=== PATIENT | male | born 1990 | race Caucasian/White ===

== ENCOUNTER 2017-10-25 09:43 | Emergency (ER) | payer OTHER ==
--- OUTSIDE RECORDS SUMMARY | 2017-10-25 10:14 | XMS REPORT ---
:1990 Author Organization eClinicalWorks Care Team Providers Name Role Phone KilgoreChavez Provider Role Unavailable Allergies No Known Allergies Problems Problem Type Condition Code Onset Dates Condition Status Assessment Obstructive sleep apnea (adult) G47.33 Active (pediatric) Assessment Primary insomnia F51.01 Active Assessment Low back pain M54.5 Active Problem Malaise and fatigue R53.81 Active Problem Obstructive sleep apnea (adult) G47.33 Active (pediatric) Problem Other chronic pain G89.29 Active Problem 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 machines and devices Problem Adult BMI 40.0-44.9 kg/sq m Z68.41 Active Problem HTN (hypertension), benign I10 Active Problem Primary insomnia F51.01 Active Assessment Other chronic pain G89.29 Active Assessment 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
--- OUTSIDE RECORDS SUMMARY | 2017-10-25 10:14 | XMS REPORT ---
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 and devices Problem Obstructive sleep apnea (adult) G47.33 Active (pediatric) Problem HTN (hypertension), benign I10 Active Assessment Other chronic pain G89.29 Active Assessment HTN (hypertension), benign I10 Active Assessment Obstructive sleep apnea (adult) G47.33 Active (pediatric) Assessment 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
--- OUTSIDE RECORDS SUMMARY | 2017-10-25 10:14 | XMS REPORT ---
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 machines and devices Problem Adult BMI 40.0-44.9 kg/sq m Z68.41 Active Problem HTN (hypertension), benign I10 Active Problem Primary insomnia F51.01 Active Assessment Low back pain M54.5 Active Assessment 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 machines and devices Assessment HTN (hypertension), benign I10 Active Assessment Other chronic pain G89.29 Active Assessment Primary insomnia F51.01 Active Medications Medication Code Code Instructions Start End Status Dosage System Date Date Duexis [facility] 69392491940 800-26.6 MG April 25, June 24, Active 1 tablet Orally Three 2018 2018 times a day PRN Tizanidine HCl [facility] 15130247182 4 MG Orally once May 23, Active 1 tablet a day 2018 as needed Ambien [facility] 37172757874 5 MG Orally Once Active 1 tablet a day at bedtime Results No Known Results Summary Purpose eClinicalWorks Submission
--- OUTSIDE RECORDS SUMMARY | 2017-10-25 10:14 | XMS REPORT ---
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 machines and devices Problem Malaise and fatigue R53.81 Active Problem Adult BMI 40.0-44.9 kg/sq m Z68.41 Active Assessment Acute upper back pain M54.9 Active Problem Obstructive sleep apnea (adult) G47.33 Active (pediatric) Problem HTN (hypertension), benign I10 Active Medications Medication Code System Code Instructions Start End Date Status Dosage Date Ambien [facility] 21819599242 5 MG Orally Once April 25, Active 1 tablet at a day 2018 bedtime Duexis [facility] 74662613635 800-26.6 MG April 25June 24, Active 1 tablet Orally Three 2018 2018 times a day PRN Results No Known Results Summary Purpose eClinicalWorks Submission
--- NOTE | 2017-10-25 11:09 | RAD REPORT ---
EXAM DESCRIPTION: RAD - Foot Left 3 View - 10/25/2017 10:33 am CLINICAL HISTORY: PAIN COMPARISON: No comparisons FINDINGS: Mild soft tissue swelling is seen along the plantar aspect of the forefoot. No fracture or dislocation seen. No aggressive marrow pattern. Small posterior calcaneal spur.
--- NOTE | 2017-10-25 11:18 | ER ---
Nurse's Notes [facility] Name: Timmy Clark Age: 27 yrs Sex: Male : 1990 Arrival Date: 10/25/2017 Time: 09:46 Bed 12 Private MD: Chavez Kilgore Diagnosis: Pain in left foot Presentation: 10/25 09:58 Presenting complaint: Patient states: noticed a lump under his left foot that was very iw painful this morning, pt does not know how long the lump has been there. Transition of care: patient was not received from another setting of care. Onset of symptoms was October 25, 2017. Risk Assessment: Do you want to hurt yourself or someone else? Patient reports no desire to harm self or others. Initial Sepsis Screen: Does the patient meet any 2 criteria? No. Patient's initial sepsis screen is negative. Does the patient have a suspected source of infection? No. Patient's initial sepsis screen is negative. Care prior to arrival: None. 09:58 Method Of Arrival: Ambulatory iw 09:58 Acuity: RM 4 iw Historical: - Allergies: 10:01 NKA; iw - Home Meds: 10:01 None [Active]; iw - PMHx: 10:01 Hypertension; iw - PSHx: 10:01 Skin Graft; shrapnel removed from left leg; iw - Immunization history:: Adult Immunizations not up to date. - Social history:: Smoking status: Patient/guardian denies using tobacco. - Ebola Screening: : Patient negative for fever greater than or equal to 101.5 degrees Fahrenheit, and additional compatible Ebola Virus Disease symptoms Patient denies exposure to infectious person Patient denies travel to an Ebola-affected area in the 21 days before illness onset No symptoms or risks identified at this time. Screenin:30 Abuse screen: Denies threats or abuse. Denies injuries from another. Nutritional iw screening: No deficits noted. Tuberculosis screening: No symptoms or risk factors identified. Fall Risk None identified. Assessment: 10:49 General: Appears in no apparent distress. Behavior is calm, cooperative. Pain: iw Complains of pain in ball of left foot Pain currently is 4 out of 10 on a pain scale. Neuro: Level of Consciousness is awake, alert, obeys commands, Oriented to person, place, time, situation, Moves all extremities. Full function. Cardiovascular: Capillary refill < 3 seconds in bilateral fingers Patient's skin is warm and dry. Respiratory: Respiratory effort is even, unlabored, Respiratory pattern is regular, symmetrical. Derm: Skin is intact, is healthy with good turgor. Musculoskeletal: Range of motion: intact in all extremities, Reports pain in left foot. Vital Signs: 10:01 BP 144 / 90; Pulse 79; Resp 16; Temp 98.3; Pulse Ox 98% on R/A; Weight 129.27 kg; iw Height 5 ft. 7 in. (170.18 cm); Pain 4/10; 10:01 Body Mass Index 44.64 (129.27 kg, 170.18 cm) iw ED Course: 09:46 Patient arrived in ED. mr 09:47 Chavez Kilgore DO is Private Physician. mr 09:58 Lalitha Zamudio, RN is Primary Nurse. iw 09:59 [facility] jr8 09:59 Brent Ramos MD is Attending Physician. jr8 09:59 Triage completed. iw 10:01 Arm band placed on. iw 10:32 X-ray completed. Portable x-ray completed in exam room. jr1 10:33 XRAY Foot LEFT 3 View In Process Unspecified. EDMS 11:17 Alton Hernández DPM is Referral Physician. jr8 11:30 Patient has correct armband on for positive identification. iw 11:30 No provider procedures requiring assistance completed. Patient did not have IV access iw during this emergency room visit. Administered Medications: No medications were administered Outcome: 11:17 Discharge ordered by . jr8 11:30 Discharged to home ambulatory. iw 11:30 Condition: good 11:30 Discharge instructions given to patient, Instructed on discharge instructions, follow up and referral plans. medication usage, Demonstrated understanding of instructions, follow-up care, medications, Prescriptions given X 1. 11:30 Patient left the ED. iw Signatures: Dispatcher [employer] EDNM Mitali Gordon mr KeithInocencia guzman jr1 Lalitha Zamudio, RN RN iw Augustin Bruce PA PA jr8
--- NOTE | 2017-10-25 11:18 | EDPHYS ---
Physician Documentation [facility] Name: Timmy Clark Age: 27 yrs Sex: Male : 1990 Arrival Date: 10/25/2017 Time: 09:46 Bed 12 Private MD: [facility] ED Physician Brent Ramos HPI: 10/25 10:10 This 27 yrs old Male presents to ER via Ambulatory with complaints of Foot jr8 Pain. 10:10 The patient presents with pain, tenderness. The complaints affect the ball of left jr8 foot. Onset: The symptoms/episode began/occurred acutely, today. Modifying factors: The symptoms are alleviated by nothing. the symptoms are aggravated by weight bearing. Associated signs and symptoms: The patient has no apparent associated signs or symptoms. Severity of symptoms: At their worst the symptoms were moderate, in the emergency department the symptoms are unchanged. The patient has not experienced similar symptoms in the past. The patient has not recently seen a physician. Denies trauma to foot. Stated that he has pain at ball of foot. Tender to palpation and walking . Historical: - Allergies: 10:01 NKA; iw - Home Meds: 10:01 None [Active]; iw - PMHx: 10:01 Hypertension; iw - PSHx: 10:01 Skin Graft; shrapnel removed from left leg; iw - Immunization history:: Adult Immunizations not up to date. - Social history:: Smoking status: Patient/guardian denies using tobacco. - Ebola Screening: : Patient negative for fever greater than or equal to 101.5 degrees Fahrenheit, and additional compatible Ebola Virus Disease symptoms Patient denies exposure to infectious person Patient denies travel to an Ebola-affected area in the 21 days before illness onset No symptoms or risks identified at this time. ROS: 10:10 Eyes: Negative for injury, pain, redness, and discharge, ENT: Negative for injury, jr8 pain, and discharge, Neck: Negative for injury, pain, and swelling, Cardiovascular: Negative for chest pain, palpitations, and edema, Respiratory: Negative for shortness of breath, cough, wheezing, and pleuritic chest pain, Abdomen/GI: Negative for abdominal pain, nausea, vomiting, diarrhea, and constipation, Back: Negative for injury and pain, Skin: Negative for injury, rash, and discoloration, Neuro: Negative for headache, weakness, numbness, tingling, and seizure. 10:10 MS/extremity: Positive for pain, tenderness, of the ball of left foot. Exam: 10:10 Constitutional: This is a well developed, well nourished patient who is awake, alert, jr8 and in no acute distress. Cardiovascular: Regular rate and rhythm with a normal S1 and S2. No gallops, murmurs, or rubs. Normal PMI, no JVD. No pulse deficits. Respiratory: Lungs have equal breath sounds bilaterally, clear to auscultation and percussion. No rales, rhonchi or wheezes noted. No increased work of breathing, no retractions or nasal flaring. Skin: Warm, dry with normal turgor. Normal color with no rashes, no lesions, and no evidence of cellulitis. Neuro: Awake and alert, GCS 15, oriented to person, place, time, and situation. Cranial nerves II-XII grossly intact. Motor strength 5/5 in all extremities. Sensory grossly intact. Cerebellar exam normal. Normal gait. 10:10 Musculoskeletal/extremity: Extremities: grossly normal except: noted in the left foot: Pain and point tenderness to ball of left foot between the 2nd and 3rd digits. No external signs of infection or trauma. No FB identified . Vital Signs: 10:01 BP 144 / 90; Pulse 79; Resp 16; Temp 98.3; Pulse Ox 98% on R/A; Weight 129.27 kg; iw Height 5 ft. 7 in. (170.18 cm); Pain 4/10; 10:01 Body Mass Index 44.64 (129.27 kg, 170.18 cm) iw MDM: 10:07 Patient medically screened. jr8 11:16 Data reviewed: vital signs, nurses notes, radiologic studies, plain films, and as a jr8 result, I will discharge patient. Data interpreted: Pulse oximetry: on room air is 98 %. Interpretation: normal. 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 10/25 10:07 Order name: XRAY Foot LEFT 3 View; Complete Time: 11:16 jr8 Administered Medications: No medications were administered Disposition: 12:38 Co-signature as Attending Physician, Brent Ramos MD I agree with the assessment and kdr plan of care. Disposition: 10/25/17 11:17 Discharged to Home. Impression: Pain in left foot. - Condition is Stable. - Discharge Instructions: Pain Without a Known Cause. - Prescriptions for Ibuprofen 800 mg Oral Tablet - take 1 tablet by ORAL route every 8 hours As needed take with food; 30 tablet. - Work release form, Medication Reconciliation Form, Thank You Letter, Antibiotic Education, Prescription Opioid Use form. - Follow up: Alton Hernández DPM; When: 2 - 3 days; Reason: Recheck today's complaints, Continuance of care, Re-evaluation by your physician. - Problem is new. - Symptoms have improved. Signatures: Dispatcher [employer] EDMS Brent Ramos MD MD kdr Lalitha Zamudio RN RN iw Augustin Bruce PA PA jr8 Corrections: (The following items were deleted from the chart) 11:30 11:17 10/25/2017 11:17 Discharged to Home. Impression: Pain in left foot. Condition is iw Stable. Forms are Medication Reconciliation Form, Thank You Letter, Antibiotic Education, Prescription Opioid Use. Follow up: Alton Hernández; When: 2 - 3 days; Reason: Recheck today's complaints, Continuance of care, Re-evaluation by your physician. Problem is new. Symptoms have improved. jr8
== END 2017-10-25 11:30 | disposition home or self-care (01) ==
LOC: ER 09:43
DX: M79.672 Pain in left foot (principal); I10 Essential (primary) hypertension
CPT/HCPCS: 99283

== ENCOUNTER 2022-10-02 01:19 | Inpatient (IN) | payer OTHER ==
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
[2022-10-02] MEDS ORDERED: ONDANSETRON 4 MG/2 ML VIAL IV PRN (01:36)
[2022-10-02] MEDS ORDERED: ALPRAZOLAM 0.25 MG TABLET PO PRN (01:36)
[2022-10-02] MEDS ORDERED: KETOROLAC 30 MG/ML INJ IV PRN (01:36)
[2022-10-02 01:47] VITALS: BMI 40.1
[2022-10-02] MEDS ORDERED: NA CHLORIDE 0.9% 1,000 ML IV SCH (02:00)
--- NOTE | 2022-10-02 02:10 | P.HP ---
Certification for Inpatient Patient admitted to: Inpatient With expected LOS: <2 Midnights Patient will require the following post-hospital care: None Practitioner: I am a practitioner with admitting privileges, knowledge of patient current condition, hospital course, and medical plan of care. Services: Services provided to patient in accordance with Admission requirements found in Title 42 Section 412.3 of the Code of Federal Regulations Patient History Date of Service: 10/02/22 Reason for admission: Abdominal pain History of Present Illness: 32-year-old male with a past medical history of hypertension, hyperlipidemia, obesity, presents to the [facility] emergency room with abdominal pain. He reports epigastric pain that is radiates to the back was 10 out of 10 started yesterday. He reports going to the emergency room after several hours. He denies nausea vomiting diarrhea fever, recent infection. He reports not taking medication for high blood pressure, elevated cholesterol, he reports taken weight loss medication Wegovy for 4 months. He reported occasional reflux other than that no prior symptoms. He reports symptoms improved with Toradol and freestanding ER. 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 - Family History Mother -: Heart disease, Lung disease, Other (see notes) Notes: Asthma Father -: Heart disease - Social History Smoking Status: Never smoker Alcohol use: Yes CD- Drugs: No Caffeine use: Yes Place of Residence: Home Review of Systems 10-point ROS is otherwise unremarkable Physical Examination - Vital Signs Temperature: 97.9 F Blood Pressure: 131/62 Pulse: 57 Respirations: 16 Pulse Ox (%): 98 - Physical Exam General: Alert, In no apparent distress, Oriented x3, Obese HEENT: Atraumatic, Normocephalic, PERRLA Neck: Supple, 2+ carotid pulse no bruit, JVD not distended Respiratory: Clear to auscultation bilaterally, Normal air movement Cardiovascular: No edema, Normal pulses, Regular rate/rhythm, Normal S1 S2 Gastrointestinal: Normal bowel sounds, Soft and benign, Other (Epigastric tenderness) Musculoskeletal: No clubbing, No swelling Integumentary: No rashes, No breakdown Neurological: Normal speech, Normal strength at 5/5 x4 extr, Sensation intact, Cranial nerves 3-12 intact Assessment and Plan - Plan Assessment plan abdominal pain Transaminitis Elevated GGT gallstones without obstruction DVT prophylaxis Assessment plan abdominal pain Transaminitis Elevated GGT GI consult, hepatitis panel, start PPI As needed analgesics, as needed antiemetics Lipid panel, in the a.m. A1c in the a.m., lipase in the a.m. CT shows gallstones without obstruction per report from the ER physician verbal report DVT prophylaxis Full code Diet n.p.o. Discharge Plan: Home Plan to discharge in: 48 Hours - Advance Directives Does patient have a Living Will: No Does patient have a Durable POA for Healthcare: No - Code Status/Comfort Care Code Status: Full Code Physician Review: Patient Assessed, Agree with Above Assessment and Plan Critical Care: No Time Spent Managing Pts Care (In Minutes): 50
[2022-10-02] MEDS ORDERED: SODIUM CHLORIDE 0.9% 10ML INJ IV PRN (02:16)
[2022-10-02 03:29] LABS: Absolute Lymphocytes (CBC) 1.8 K/uL (0.7-4.9); Hematocrit 43.7 % (39.6-49.0); Lymphocytes % 27.7 % (15.3-44.8); MCV 94.8 fL (80-100); MPV 8.4 fL (7.6-11.3); Platelets 262 thou/uL (152-406); RBC Red Blood Cell Count 4.61 M/uL (4.33-5.43)
[2022-10-02 04:05] LABS: Albumin 3.5 g/dL (3.4-5.0); Magnesium 1.8 mg/dL (1.6-2.4); Potassium 3.5 mEq/L (3.5-5.1); Protein, Total 7.2 g/dL (6.4-8.2)
[2022-10-02] MEDS ORDERED: KCL 20 MEQ/100 mL IVPB 20 MEQ/100 ML BAG IV SCH (06:00)
[2022-10-02 06:10] LABS: Phosphorus 3.9 mg/dL (2.5-4.9)
[2022-10-02 06:47] LABS: Hepatitis B Core IgM Nonreactive (Nonreactive); Hepatitis B surface AG Interp. Nonreactive (Nonreactive); Hepatitis C Virus Ab Nonreactive (Nonreactive)
[2022-10-02] MEDS ORDERED: MAGNESIUM SULFATE 1 gm IVPB 1 GM/100 ML BAG IV ONE (08:00)
[2022-10-02] MEDS: NA CHLORIDE 0.9% 1,000 ML IV SCH ×3 (08:22→19:47)
[2022-10-02] MEDS: MORPHINE 4 MG/ML SYR IV PRN ×2 (08:27→12:38)
[2022-10-02] MEDS: PANTOPRAZOLE 40 MG INJ IVP SCH ×2 (08:28→19:46)
[2022-10-02 09:01] LABS: Protime INR 1.27
--- NOTE | 2022-10-02 09:42 | RAD REPORT ---
EXAM DESCRIPTION: US - Scrotum Testicles - 10/02/2022 5:22 am CLINICAL HISTORY: testicular pain COMPARISON: No comparisons TECHNIQUE: Sonographic grayscale and color flow images of the scrotum were obtained. FINDINGS: The right testicle measures 3.7 x 2.5 x 3.6 cm. No intratesticular masses or evidence of t esticular torsion. The left testicle measures 3.7 x 2.4 x 3.1 cm. No intratesticular masses or evidence of testicular to rsion. Normal vascularity to both testes. Both epididymides are normal in size and appearance. No varicocele. Trace left hydrocele. No pathologic fluid collections. IMPRESSION: Trace left hydrocele. Otherwise unremarkable scrotal ultrasound.
--- NOTE | 2022-10-02 12:12 | EKG ---
Test Date: 2022-10-02 Test Time: 09:23:07 Skirt Trimmer: CALLUM MEASUREMENT RESULTS: Intervals: Rate: 58 NM: 152 QRSD: 110 QT: 446 QTc: 437 [place]: P: 38 NM: 152 QRS: 74 T: 54 INTERPRETIVE STATEMENTS: Sinus bradycardia Nonspecific T wave abnormality Abnormal ECG Compared to ECG 11/12/2007 09:13:53 T-wave abnormality now present Sinus rhythm no longer present Sinus arrhythmia no longer present Electronically Signed On 10-02-22 12:11:43 CDT by Lonny Philip
[2022-10-02 13:09] LABS: Urine Bacteria None Seen /HPF (<20); Urine Bilirubin 1+ (Negative); Urine Blood Trace (Negative); Urine Clarity Clear (Clear); Urine Color Dark-Yellow (Yellow); Urine Glucose NEGATIVE (Negative); Urine Mucus 4+ /HPF (None Seen); Urine Protein 1+ (Negative); Urine Urobilinogen 1+ (Normal)
[2022-10-02 13:10] LABS: Specific Gravity > 1.030 (1.005-1.030)
[2022-10-02] MEDS: PHENAZOPYRIDINE 100MG TAB PO SCH ×2 (15:15→19:46)
--- NOTE | 2022-10-02 15:24 | P.PN ---
Date of Service: 10/02/22 Patient seen and examined. Patient is complaining of difficulty voiding, suprapubic pain. He stated his abdominal pain has resolved. No fever. CT abdomen pelvis done at [place] [facility] results reviewed. Gall stones without acute cholecystitis noted. Elevated AST/ALT/ALP Normal CPK. Normal coagulation profile. Poor urine output. Because of AST/ALT/ALP and abdominal is unclear. Could be related to passage of gallstone. Hepatitis profile is negative. Because of suprapubic pain also unclear. UA does not suggest UTI. Plan: Supportive measures Aggressive IV hydration Monitor urine output Repeat LFT GI consulted. Regular diet. N.p.o. after midnight.
[2022-10-03] MEDS: NA CHLORIDE 0.9% 1,000 ML IV SCH ×4 (03:16→22:10)
[2022-10-03 03:22] LABS: Absolute Lymphocytes (CBC) 1.8 K/uL (0.7-4.9); Hematocrit 39.3 % (39.6-49.0); Lymphocytes % 27.3 % (15.3-44.8); MCV 92.9 fL (80-100); MPV 8.4 fL (7.6-11.3); Platelets 230 thou/uL (152-406); RBC Red Blood Cell Count 4.23 M/uL (4.33-5.43)
[2022-10-03 03:49] LABS: Albumin 2.9 g/dL (3.4-5.0); Bilirubin Direct 0.3 mg/dL (0-0.2); Magnesium 1.9 mg/dL (1.6-2.4); Potassium 3.7 mEq/L (3.5-5.1); Protein, Total 6.1 g/dL (6.4-8.2)
--- NOTE | 2022-10-03 07:08 | P.PN ---
Date of Service: 10/03/22 Subjective: Abdominal pain resolved since yesterday morning no acute events overnight Decreased UOP, +dark urine - taylor testicular pain resolved afebrile ROS: 10 point ROS as noted above, otherwise negative Physical Exam: GEN: Alert, oriented, NAD HEENT: Normal conjunctiva, sclera anicteric CV: Regular rate and rhythm, no edema Pulm: Nonlabored respirations on room air, clear bilaterally ABD: Soft, mild epigastric tenderness, nondistended Neuro: Normal speech, normal affect Taylor in place, [place] urine vitals reviewed Problem List: Abdominal pain Transaminitis Elevated GGT Cholelithiasis without acute cholecystitis Testicular pain urinary retention Abdominal pain Transaminitis Elevated GGT Cholelithiasis without acute cholecystitis CT abdomen pelvis done at [place] [facility] results reviewed. Gall stones without acute cholecystitis noted. GI consulted MRCP noted contracted gallbladder otherwise unremarkable Cont aggressive IV fluids NPO for now, advance diet this afternoon and adjust IVF cont PPI abdominal pain improved, +afebrile PRN pain medication LFTs improving suspect passed stone / transient obstruction Normal CPK. repeat labs in am Testicular pain urinary retention scrotum u/s (10/02): Trace left hydrocele. Otherwise unremarkable UA does not suggest UTI. Dark urine noted, secondary to bilirubin Taylor placed 10/02 due to urinary retention unclear etiology of urinary retention, possibly from bilirubin, CT abd/pelvis and testicular U/S normal void trial in AM VTE: SCD Code: Full Dispo: Home, ~1 day
[2022-10-03] MEDS ORDERED: MAGNESIUM SULFATE 1 gm IVPB 1 GM/100 ML BAG IV ONE (08:00)
[2022-10-03] MEDS ORDERED: LORazepam 2 MG/ML VIAL IV ONE (08:00)
[2022-10-03] MEDS ORDERED: KCL 20 MEQ/100 mL IVPB 20 MEQ/100 ML BAG IV SCH (09:00)
[2022-10-03] MEDS: PHENAZOPYRIDINE 100MG TAB PO SCH ×3 (09:06→20:48)
[2022-10-03] MEDS: PANTOPRAZOLE 40 MG INJ IVP SCH ×2 (09:06→20:48)
--- NOTE | 2022-10-03 10:11 | RAD REPORT ---
EXAM DESCRIPTION: MRICholangiogram10/03/2022 8:56 am CLINICAL HISTORY: Abdominal pain/elevated liver function test enzymes COMPARISON: None TECHNIQUE: Magnetic resonance cholangiogram was performed.3D MIP reconstruction performed. Additiona l axial and coronal magnetic resonance imaging of abdomen obtained. FINDINGS: The gallbladder is contracted. It was not well imaged on this exam The biliary tree is normal caliber without a filling defect. Pancreatic duct is normal caliber IMPRESSION: Contracted gallbladder which is not well imaged on this exam Otherwise normal MRCP
[2022-10-03] MEDS ORDERED: POTASSIUM CL SA 10 MEQ TAB PO ONE (15:15)
[2022-10-04 03:41] LABS: Absolute Lymphocytes (CBC) 2.2 K/uL (0.7-4.9); Lymphocytes % 32.5 % (15.3-44.8); MCV 93.3 fL (80-100); MPV 8.9 fL (7.6-11.3); Platelets 247 thou/uL (152-406)
[2022-10-04 04:02] LABS: Bilirubin Total 0.6 mg/dL (0.2-1.0); Magnesium 1.9 mg/dL (1.6-2.4); Phosphorus 3.9 mg/dL (2.5-4.9); Potassium 3.8 mEq/L (3.5-5.1); Protein, Total 6.4 g/dL (6.4-8.2)
[2022-10-04] MEDS: NA CHLORIDE 0.9% 1,000 ML IV SCH (04:52)
[2022-10-04] MEDS: PHENAZOPYRIDINE 100MG TAB PO SCH (08:06)
[2022-10-04] MEDS: PANTOPRAZOLE 40 MG INJ IVP SCH (08:06)
[2022-10-04] MEDS ORDERED: DOCUSATE NA 100 MG CAP PO SCH (09:00)
[2022-10-04] MEDS ORDERED: POTASSIUM CL SA 10 MEQ TAB PO ONE (09:00)
[2022-10-04 09:13] VITALS: O2SAT 96
[2022-10-04 09:41] VITALS: BP 130/71; TEMP 97.5
--- NOTE | 2022-10-04 10:28 | P.PN ---
Subjective Date of Service: 10/03/22 Chief Complaint: MARIO pain, cholelithiasis Subjective: Improving (No abdominal pain now. Feels much better.) Physical Examination - Vital Signs Temperature: 97.5 F Blood Pressure: 130/71 Pulse: 57 Respirations: 16 Pulse Ox (%): 97 - Studies Laboratory Data (last 24 hrs) 10/04/22 10/04/22 02:03 02:03 WBC 6.70 Hgb 14.3 Hct 41.0 Plt Count 247 Sodium 138 Potassium 3.8 BUN 11 Creatinine 0.83 Glucose 95 Phosphorus 3.9 Magnesium 1.9 Total Bilirubin 0.6 AST 110 H ALT 695 H Alkaline Phosphatase 136 H Lipase 86 H Assessment And Plan - Current Problems (Diagnosis) (1) Biliary colic Current Visit: Yes Status: Acute (2) Cholelithiasis Current Visit: Yes Status: Acute (3) Abnormal liver enzymes Current Visit: Yes Status: Acute (4) Weight loss Current Visit: Yes Status: Acute (5) Obesity Current Visit: Yes Status: Acute (6) Difficulty urinating Current Visit: Yes Status: Acute (7) PTSD (post-traumatic stress disorder) Current Visit: Yes Status: Acute - Plan REC: 1) monitor labs (probably passed biliary stone) 2) advance diet slowly Physician Review: Patient Assessed, Agree with Above Assessment and Plan
--- NOTE | 2022-10-04 10:29 | P.PN ---
Subjective Date of Service: 10/04/22 Chief Complaint: MARIO pain, cholelithiasis Subjective: Improving (Liver numbers continue to decline.) Physical Examination - Vital Signs Temperature: 97.5 F Blood Pressure: 130/71 Pulse: 57 Respirations: 16 Pulse Ox (%): 97 - Studies Laboratory Data (last 24 hrs) 10/04/22 10/04/22 02:03 02:03 WBC 6.70 Hgb 14.3 Hct 41.0 Plt Count 247 Sodium 138 Potassium 3.8 BUN 11 Creatinine 0.83 Glucose 95 Phosphorus 3.9 Magnesium 1.9 Total Bilirubin 0.6 AST 110 H ALT 695 H Alkaline Phosphatase 136 H Lipase 86 H Assessment And Plan - Current Problems (Diagnosis) (1) Biliary colic Current Visit: No Status: Acute (2) Cholelithiasis Current Visit: No Status: Acute (3) Abnormal liver enzymes Current Visit: No Status: Acute (4) Weight loss Current Visit: No Status: Acute (5) Obesity Current Visit: No Status: Acute (6) Difficulty urinating Current Visit: No Status: Acute (7) PTSD (post-traumatic stress disorder) Current Visit: No Status: Acute - Plan REC: 1) monitor labs (probably passed biliary stone) 2) advance diet 3) GI clinic f/u Physician Review: Patient Assessed, Agree with Above Assessment and Plan
--- NOTE | 2022-10-04 14:18 | CON ---
Date of Consultation: 10/02/2022 Reason For Consultation: Biliary colic with midepigastric pain radiating to back. History Of Present Illness: This patient is a 32-year-old white male with history of hypertension, h yperlipidemia, obesity, and recent weight loss, who presented to the hospital with midepigastric pain radiating to back, 11/14 yesterday. He states he feels much better currently at rest in bed, he tells me. He does report taking a medicine called Wegovy for weight loss recently. He has l ost approximately 85 pounds over the past 6 months with these Wegovy shots. He also notes difficulty urinating, which required a Dunne placement. 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 Faizan rapp has noted blood and mucus being seen in the urine. Past Medical History: Significant for obesity, obstructive sleep apnea, PTSD, hypertension, chronic back pain, skin grafts, recent weight loss. Medications: Include Wegovy. Allergies: NKDA. Social History: He is , 2 children. Smokes cigars. Occasional alcohol. Family History: Father of heroin overdose. Mother is alive with obesity, asthma, and possible congestive heart failure. Review of Systems: The patient has midepigastric pain radiating to back. He does have nausea, fevers, and chills, but n o emesis. So, the patient does report nausea, fevers, chills and no emesis. No hematemesis, coffee- grounds emesis, hematuria, dysuria, polyuria, polydipsia, melena, hematochezia, chest pain, shortness of breath, seizure, syncope, muscle aches, joint aches, backaches. He does have some anxiety and so me PTSD. No depression. Physical Examination: Vital Signs: He is 5 feet 6 inches, 248 pounds, BMI of 40 kg/sq m. Current temperature 97.4 degrees Fahrenheit, pulse 54, respirations 14, blood pressure 122/64, O2 saturation 100% on room air. General: Obese male, lying in bed, in no acute distress. HEENT: Normocephalic, atraumatic. Anicteric. Pupils equal, round, and reactive to light. Extraocu lar movements are intact. Oropharynx is clear. Neck: Supple. No masses. Respirations: Clear to auscultation bilaterally. Cardiac: Regular rate and rhythm. No gallops or rubs. Abdomen: Positive bowel sounds. Soft, nontender, nondistended. No hepatosplenomegaly. Extremities: No clubbing, cyanosis, or edema. 2+ pulses. Neuro: Alert and oriented x3. Grossly nonfocal. 5/5 motor strength. Sensation intact to light nikko ch. Laboratory Data: The patient has a white count of 6.4, hemoglobin of 15, hematocrit of 44, MCV of 95 , platelet count 262, polys of 58%, lymphocytes 20%, monocytes 10%, and eosinophils 3%. PT of 14.0, INR of 1.37. Sodium 138, potassium 4.0, chloride 108, bicarb 26, BUN of 17, creatinine of 0.8, gluco se 101, hemoglobin A1c of 5.0, calcium 8.9. Triglycerides 75, cholesterol 172, LDL 128, HDL 38, lipa se 56. AST of 1099, ALT of 1546, alkaline phosphatase 185, total bilirubin 2.0. UA showed specific gravity greater than 1.030, trace ketones and blood, 1+ bilirubin, 11-20 RBCs, white count less than 5, squamous epithelials less than 5, negative leukocyte esterase, negative nitrite, 4+ mucus, 1+ prot ein, Tylenol less than 2.5, alcohol less than 10. Acute hepatitis panel negative for hepatitis A, B, and C. Impression: 1.Biliary colic, possible passing gallstones, with AST and ALT 1099 and 1546, alkaline phosphatase 8 5, total bilirubin 2.0. The patient is pain free now. Prior to admission, pain on scale was 10/10, now is down to 0. Also, his white count is normal. Polys were negative. CT . 2.Cholelithiasis, possible cholecystitis. 3.Weight loss of 85 pounds in the past 6 months on Wegovy shots. 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 Recommendations: 1.Await MRCP to be done tomorrow morning. 2.Monitor labs. 3.Continue IV fluids, IV antibiotics. 4.Continue p.r.n. pain medications and antiemetics. 5.Check UA and therapy as indicated. LAUREL/DINO Voice ID: [id number] Report ID: [id number]
== END 2022-10-04 10:15 | disposition home or self-care (01) | DRG 445 ==
LOC: 2ND 01:19
PROVIDERS: ADMIT Internal Medicine; ATTEND Hospitalist
DX: K80.70 Calculus of gallbladder and bile duct without cholecystitis without obstruction (principal); Z68.41 Body mass index [BMI] 40.0-44.9, adult; E66.9 Obesity, unspecified; N50.819 Testicular pain, unspecified; I10 Essential (primary) hypertension; E78.5 Hyperlipidemia, unspecified; K21.9 Gastro-esophageal reflux disease without esophagitis; G89.29 Other chronic pain; M54.9 Dorsalgia, unspecified; F43.10 Post-traumatic stress disorder, unspecified; R33.9 Retention of urine, unspecified; R74.01 Elevation of levels of liver transaminase levels; R63.4 Abnormal weight loss
CPT/HCPCS: 36415; 74181; 76870; 80048; 80053; 80061; 80074; 80143; 81001; 82077; 82248; 82550; 82977; 83036; 83690; 83735; 84100; 85025; 85610; 93005; C9113; J3475; J3480; J7030

== ENCOUNTER 2022-10-11 08:31 | Inpatient (IN) | payer OTHER ==
--- OUTSIDE RECORDS SUMMARY | 2022-10-11 08:35 | XMS REPORT | Continuity of Care Document ---
:1990 Author Organization [facility] t Address [address] [place] [address] [place] [id number] Care Team Providers Name Role Phone [place], [facility] Med Primary Care Physician [phone] Chavez Kilgore Attending Clinician Unavailable Xochilt BENSON, Annetta Sun Attending Clinician Unavailable Ishmael BENSON, Millie Ramos Attending Clinician Unavailable Fatimah QUINN, Arianne Ramos Attending Clinician Payers Payer Name Policy Type Policy Number Effective Date Expiration Date S ezio FOR [id number] 2020 LIFE 00:00:00 FOR C1 [id number] 2017 Common [facility] t LIFE 00:00:00 - [facility] FOR C1 [id number] 2017 Common [facility] t LIFE 00:00:00 - [facility] FOR C1 [id number] 2017 Common [facility] t LIFE 00:00:00 - [facility] FOR C1 [id number] 2017 Common [facility] t LIFE 00:00:00 - [facility] FOR C1 [id number] 2017 Common [facility] t LIFE 00:00:00 - [facility] FOR C1 [id number] 2017 Common [facility] t LIFE 00:00:00 - [facility] FOR C1 [id number] 2017 Common Spiri t LIFE 00:00:00 [facility] Problems Condition Condition Condition Status Onset Resolution Last Treating Co mments Source Name Details Category Date Date Treatment Clinician Date Pilonidal Pilonidal Disease Active Uni vers abscess abscess 6-08 ity of 00:00: [place] [address] Medical Branch Obesity Obesity Disease Active 2015-02 Univers (BMI (BMI 1-16 ity of 30-39.9) 30-39.9) 00:00: [address] Branch Blisters Blisters Disease Active 2015-02 [...] of thigh (any thigh (any part) part) [id number] Body mass Problem Com mon index Spirit (BMI) of - CHI 45.0-49.9 in adult [facility] [id number] Obstructiv Problem Com mon e sleep Spirit apnea - [facility] (adult) (pediatric [facility] [id number] HTN Problem Common (hypertens Spirit ion), - CHI benign [facility] Malaise Malaise Problem Common and and Spirit fatigue fatigue - [facility] [id number] Other Problem Common chronic Spirit pain - [facility] [id number] Tension Problem Commo n headache Spirit - [facility] [id number] Morbid Problem Commo n 9104 (severe) Spirit obesity - CHI due to [facility] [id number] Primary Problem Common insomnia Spirit - [facility] [id number] Mixed Problem Common hyperlipid Spirit emia - [facility] [id number] 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 - CHI machines [facility] [id number] Mild Problem Common intermitte Spirit nt asthma, - CHI unspecifie [facility] complicate Medica Formerly named [facility] [id number] GERD Problem Common without Spirit esophagiti - CHI s [facility] Essential Benign Problem Common hypertensi essential Spi rit on HTN - [facility] [id number] Post-COVID Problem Co mmon syndrome Spirit [facility] Allergies, Adverse Reactions, Alerts Allergy Allergy Status Severity Reaction(s) Onset Inactive Treating Comm ents Source Name Type Date Date Clinician NO KNOWN Drug Active Univers ALLERGIE Class ity of S [facility] Social History Social Habit Start Date Stop Date Quantity Comments Source Exposure to Not sure [facility]-CoV2 [facility] (event) Branch History of Common Spirit - Tobacco Use [facility] Sex Assigned At Common Sp carolyn - [facility] Tobacco use and 2020-10-10 2020-10-10 Current user Univers ity of exposure 00:00:00 00:00:00 [facility] Alcohol intake 2020-10-10 2020-10-10 Current University of 00:00:00 00:00:00 non-drinker of [facility] alcohol Branch (finding) Smoking Status Start Date Stop Date Source Never Smoker [facility] Medications Ordered Filled Start Stop Current Ordering [...] 1 Kaushal as mg 00 :00 dose, [facility] 10/10/20 at Branch 2330, GIANNI ibuprofen 2021-0 2021- No 800mg 800 mg, Uni vers (IBU) 10-11 Oral, ity of tablet 800 04:27: 04:28 ONCE, 1 Kaushal as mg 00 :00 dose, [facility] 10/10/20 at Branch 2330, GIANNI Cyclobenzap Cyclobenzap 2019-0 Yes Chavez 1 tablet Common rine HCl rine HCl 7-07 [place] at bedtime Spirit 00:00: as needed - CHI [facility] Kenalog Kenalog 2020-0 No 40mg Common (Triamcinol (Triamcinol 7-07 S pirit one) one) 00:[facility] No 40mg Common (Triamcinol (Triamcinol 7-07 S pirit one) one) 00:00: - [facility]I [facility] Kenalog Kenalog 2020-0 No 40mg Common (Triamcinol (Triamcinol 7-07 S pirit one) one) 00:00: - [facility] Omeprazole Omeprazole 2018-0 Yes Chavez 1 capsule Common 7-24 [place] Spirit 00:00: - CHI [facility] ProAir HFA ProAir HFA 2018-0 Yes Chavez 2 puffs as Common 7-24 [place] needed Spirit 00:00: - CHI [facility] Omeprazole Omeprazole 2018-0 No 1{capsu QD Omeprazole [...] pirit one) one) 00:00: - CHI 00 [facility] Kenalog Kenalog 2017- No 40mg Common (Triamcinol (Triamcinol 2-18 S pirit one) one) 00:00: - [facility] 2017-02 No 40mg Common (Triamcinol (Triamcinol 2-18 S pirit one) one) 00:00: - CHI 00 [facility] Ambien Ambien 2018-0 Yes Chavez 1 tablet Com mon 04-25 [place] at bedtime Spirit 00:00: - CHI 00 [facility] No known No Univers medications ity of [facility] No known No Univers medications ity of [facility] Branch No known No Univers medications ity of [facility] No known No Univers medications ity of [facility] No known No Univers medications ity of [facility] No known No [facility] ProAir HFA ProAir HFA No 2{puffs QID [...] Completed Common Spirit - (Triamcinolone) (Triamcinolone) 11:53:00 [facility] Jim Fernandez 2019-08-12 Completed Common Spirit - (Triamcinolone) (Triamcinolone) 11:53:00 [facility] Jim Fernandez 2019-08-12 Completed Common Spirit - (Triamcinolone) (Triamcinolone) 11:53:00 [facility] Jim Fernandez 2019-08-12 Completed Common Spirit - (Triamcinolone) (Triamcinolone) 11:53:00 [facility] Jim Fernandez 2019-08-12 Completed Common Spirit - (Triamcinolone) (Triamcinolone) 11:53:00 [facility] Jim Fernandez 2019-08-12 Completed Common Spirit - (Triamcinolone) (Triamcinolone) 11:53:00 [facility] Jim Fernandez 2019-08-12 Completed Common Spirit - (Triamcinolone) (Triamcinolone) 11:53:00 [facility] Jim Fernandez 2018-01-22 Completed Common Spirit - (Triamcinolone) (Triamcinolone) 13:13:00 [facility] Jim Fernandez 2018-01-22 Completed Common Spirit - (Triamcinolone) (Triamcinolone) 13:13:00 [facility] Jim Fernandez 2018-01-22 Completed Common Spirit - (Triamcinolone) (Triamcinolone) 13:13:00 [facility] Jim Fernandez 2018-01-22 Completed Common Spirit - (Triamcinolone) (Triamcinolone) 13:13:00 [facility] Jim Fernandez 2018-01-22 Completed [facility] Spirit - (Triamcinolone) (Triamcinolone) 13:13:00 [facility] Kenalog Kenalog 2018-01-22 Completed Common Spirit - (Triamcinolone) (Triamcinolone) 13:13:00 [facility] Kenalog Kenalog 2018-01-22 Completed Common Spirit - (Triamcinolone) (Triamcinolone) 13:13:00 [facility] Influenza Virus 2015-12-14 Completed Universit y of Vaccine Quad IM 3+ 00:00:00 [facility] Influenza Virus 2015-12-14 Completed Universit y of Vaccine Quad IM 3+ 00:00:00 [facility] Influenza Virus 2015-12-14 Completed Universit y of Vaccine Quad IM 3+ 00:00:00 [facility] Influenza Virus 2015-12-14 Completed Universit y of Vaccine Quad IM 3+ 00:00:00 [facility] Influenza Virus 2015-12-14 Completed Universit y of Vaccine Quad IM 3+ 00:00:00 [facility] Influenza Virus 2015-12-14 Completed Universit y of Vaccine Quad IM 3+ 00:00:00 [facility] Td 2015-11-28 Completed University of 00:00:00 [facility] Td 2015-11-28 Completed University of 00:00:00 [facility] Td 2015-11-28 Completed University of 00:00:00 [facility] Td 2015-11-28 Completed University of 00:00:00 [facility] Td 2015-11-28 Completed University of 00:00:00 [facility] Td 2015-11-28 Completed University of 00:00:00 [facility] Vital Signs Vital Name Observation Time Observation Value Comments Source height 2022-02-03 10:50:00 67 [in_i] [facility] weight 2022-02-03 10:50:00 295 [lb_av] [facility] temperature 2022-02-03 10:50:00 97.8 [degF] [facility] bmi 2022-02-03 10:50:00 46.2 kg/m2 [facility] height 2020-11-24 16:10:00 67 [in_i] [facility] weight 2020-11-24 16:10:00 316.5 [lb_av] Common [facility] temperature 2020-11-24 16:10:00 97.3 [degF] Common S pirit [facility] bmi 2020-11-24 16:10:00 49.57 kg/m2 Common S pirit [facility] oximetry 2020-11-24 16:10:00 97 % Common S pirit [facility] respiratory rate 2020-11-24 16:10:00 18 /min Comm on [facility] blood pressure 2020-11-24 16:10:00 135 mm[Hg] Common Spirit - systolic [facility] blood pressure 2020-11-24 16:10:00 82 mm[Hg] Common Spirit - diastolic [facility] height 2020-11-01 16:00:00 67 [in_i] [facility] weight 2020-11-01 16:00:00 302.6 [lb_av] Common [facility] temperature 2020-11-01 16:00:00 96.9 [degF] Common S [facility] bmi 2020-11-01 16:00:00 47.39 kg/m2 Common S [facility] oximetry 2020-11-01 16:00:00 97 % [facility] 2020-11-01 16:00:00 18 /min Comm on [facility] blood pressure 2020-11-01 16:00:00 120 mm[Hg] [facility] Spirit - systolic [facility] blood pressure 2020-11-01 16:00:00 80 mm[Hg] [facility] Spirit - diastolic [facility] height 2020-10-20 10:50:00 67 [in_i] Common S pirit [facility] weight 2020-10-20 10:50:00 298 [lb_av] Common S pirit [facility] temperature 2020-10-20 10:50:00 98 [degF] Common S pirit - [facility] bmi 2020-10-20 10:50:00 46.67 kg/m2 Common S [facility] oximetry 2020-10-20 10:50:00 97 % Common S pirit - [facility] blood pressure 2020-10-20 10:50:00 131 mm[Hg] Common Spirit - systolic [facility] blood pressure 2020-10-20 10:50:00 74 mm[Hg] Common Spirit - diastolic [facility] Systolic blood 2020-10-11 06:05:00 135 mm[Hg] Univer sity of [facility] Diastolic blood 2020-10-11 06:05:00 89 mm[Hg] Unive rsity [facility] Heart rate 2020-10-11 06:05:00 109 /min [facility] Body temperature 2020-10-11 06:05:00 39.28 Giselle [facility] Respiratory rate 2020-10-11 06:05:00 18 /min [facility] Oxygen saturation in 2020-10-11 06:05:00 95 /min [facility] blood by [facility] Pulse oximetry [facility] Body height 2020-10-11 04:17:00 167.6 cm [facility] Body weight 2020-10-11 04:17:00 131.543 kg [facility] BMI 2020-10-11 04:17:00 46.81 kg/m2 [facility] Procedures Procedure Date / Time Performed Performing Clinician Sourc e XR CHEST 1 VW 2020-10-11 05:05:57 Arianne Sheridan [facility] NOTICE OF PRIVACY 2020-10-11 04:07:52 [facility] CONSENT/REFUSAL FOR 2020-10-11 04:07:17 [facility] DI[facility]IS AND Name Medical Branch TREATMENT Encounters Start End Encounter Admission Attending Care Care Encounter Source Date/Time Date/Time Type Type Clinicians Facility Department ID 2021-12-23 Outpatient Jame [facility] [id number] Common 10:35:01 [facility] [id number] [facility] 2021-12-22 Outpatient [place], STLMLC STLMLC [id number] Common 09:25:00 Chavez [id number] [facility] 2021-03-02 Outpatient Kilgore, STLMLC STLMLC [id number] Common 13:48:57 Chavez [id number] [facility] 2021-03-02 Outpatient Kilgore, STLMLC STLMLC [id number] Common 11:18:09 Chavez [id number] [facility] 2021-03-02 Outpatient Kilg[place], STLMLC STLMLC [id number] Common 11:10:10 Chavez [id number] [facility] 2020-12-06 Emergency [facility] [id number] Univers 20:36:06 ity of [facility] 2022-02-03 2022-02-03 OFFICE STLMLC STLMLC [id number] Co mmon 00:00:00 00:00:00 VISIT EST Spir it PT LEVEL 3 [facility] 2022-02-03 2022-02-03 (TEL) STLMLC STLMLC [id number] Co mmon 00:00:00 00:00:00 [facility] 2021-12-12 2021-12-12 (TEL) STLMLC STLMLC [id number] Co mmon 00:00:00 00:00:00 [facility] 2020-11-24 2020-11-24 PREV VISIT STLMLC STLMLC [id number] Common 00:00:00 00:00:00 EST AGE [facility] 18-39 - [facility] 2020-11-15 2020-11-15 (TEL) STLMLC STLMLC [id number] Co mmon 00:00:00 00:00:00 [facility] 2020-11-01 2020-11-01 (TEL) STLMLC STLMLC [id number] Co mmon 00:00:00 00:00:00 [facility] 2020-11-01 2020-11-01 OFFICE STLMLC STLMLC [id number] Co mmon 00:00:00 00:00:00 VISIT EST Spir it PT LEVEL 3 - [facility] 2020-10-20 2020-10-20 (TEL) STLMLC STLMLC [id number] Co mmon 00:00:00 00:00:00 [facility] 2020-10-20 2020-10-20 OFFICE STLMLC STLMLC [id number] Co mmon 00:00:00 00:00:00 VISIT EST Spir it PT LEVEL 3 - [facility] 2020-10-15 2020-10-15 (TEL) STLMLC STLMLC [id number] Co mmon 00:00:00 00:00:00 [facility] 2020-10-12 2020-10-12 Letter GAMALIEL Lemon [id number] Univers 00:00:00 00:00:00 (Out) Annetta BUTTS [id number] it y [facility] [id number] [place] as [id number] [place] [address] Branch 2020-10-12 2020-10-12 Telephone GAMALIEL Quiñones [id number] Univers 00:00:00 00:00:00 Milliedaniel BUTTS [id number] ity [facility] [id number] [place]hal as [id number] [place] [address] Branch 2020-10-10 2020-10-11 Emergency [facility] [id number] Univers 23:20:00 01:30:00 Arianne Rico [id number] ity [facility] [id number] [facility] [id number] [facility] 084 Branch 2019-10-07 2019-10-07 [facility] [id number] Common 11:30:00 11:30:[address] [place] [address] Sp[address] [facility] 2019-08-12 2019-08-12 [facility] [id number] Common 11:30:00 11:30:[address] [address] [facility] 2019-03-03 2019-03-03 [facility] [id number] Common 11:15:00 11:15:[address] [address] [facility] 2018-12-31 2018-12-31 [facility] [id number] Common 11:00:00 11:00:[address] [address] [facility] 2018-12-30 2018-12-30 [facility] [id number] Common 08:12:00 08:12:[address] [address] [facility] 2018-12-02 2018-12-02 [facility] [id number] Common 16:32:00 16:32:[address] [address] [facility] 2018-10-30 2018-10-30 [facility] [id number] Common 15:30:00 15:30:[address] [address] [facility] 2018-08-28 2018-08-28 Outpatient [facility] [id number] Common 15:45:00 15:45:[address] [address] [facility] 2018-08-14 2018-08-14 [facility] [id number] Common 09:30:00 09:30:[address] [address] [facility] 2018-01-22 2018-01-22 Out[facility] [id number] Common 13:00:00 13:00:[address] [address] [facility] 2017-09-25 2017-09-25 [facility] [id number] Common 13:30:00 13:30:[address] [address] [facility] 2017-07-23 2017-07-23 [facility] [id number] Common 15:00:00 15:00:[address] [place] [address] [facility] 2017-05-23 2017-05-23 [facility] [id number] Common 15:00:00 15:00:[address] [place] [address] [facility] 2017-04-25 2017-04-25 Outpatient Parisa Martinez [id number] Common 15:00:00 15:00:[address] [place] [address] [facility] Results This patient has no known results.
[2022-10-11] MEDS ORDERED: NA CHLORIDE 0.9% 1,000 ML ONE (09:24)
[2022-10-11] MEDS ORDERED: MORPHINE 4 MG/ML SYR ONE (09:24)
[2022-10-11] MEDS ORDERED: FAMOTIDINE 20 MG/2 ML VIAL IV ONE (09:25)
--- NOTE | 2022-10-11 09:53 | RAD REPORT ---
EXAM DESCRIPTION: US - Abdomen Exam Limited - 10/11/2022 9:35 am CLINICAL HISTORY: Abdominal pain. COMPARISON: September 2022 MRCP FINDINGS: Multiple gallstones. Gallbladder wall is not thickened Common bile duct 6.5 millimeters IMPRESSION: Cholelithiasis without evidence of cholecystitis Borderline dilatation of common bile duct
[2022-10-11 10:08] LABS: Bilirubin Total 1.3 mg/dL (0.2-1.0); Potassium 4.2 mEq/L (3.5-5.1); Protein, Total 8.1 g/dL (6.4-8.2)
[2022-10-11 10:45] LABS: Absolute Lymphocytes (CBC) 0.9 K/uL (0.7-4.9); Lymphocytes % 15.7 % (15.3-44.8); MCV 93.7 fL (80-100); MPV 8.4 fL (7.6-11.3); Platelets 229 thou/uL (152-406); RBC Red Blood Cell Count 4.37 M/uL (4.33-5.43)
--- NOTE | 2022-10-11 10:48 | EDPHYS ---
Physician Documentation [facility] Name: Timmy Clark Age: 32 yrs Sex: Male : 1990 Arrival Date: 10/11/2022 Time: 08:31 Bed 18 Private MD: ED Physician Guy Love HPI: 10/11 09:17 This 32 yrs old Unknown Male presents to ER via Ambulatory with complaints of Abdominal snw Pain. 09:17 The patient presents with abdominal pain in the epigastric area, in the upper abdomen. snw Onset: The symptoms/episode began/occurred acutely, and became worse this morning. The symptoms do not radiate. Associated signs and symptoms: Pertinent positives: nausea. The symptoms are described as constant, steady. Severity of pain: At its worst the pain was severe. The patient has experienced similar episodes in the past, with the last episode occurring pt was admitted for MRCP, told he may have passed a gallstone, had several more but no inflammation. sees Dr. Kilgore. Historical: - Allergies: 09:02 NKA; iw - PMHx: 09:02 Hypertension; iw - Immunization history:: Adult Immunizations unknown. - Social history:: Smoking status: unknown. ROS: 09:19 Constitutional: Negative for fever, chills, and weight loss, Eyes: Negative for injury, snw pain, redness, and discharge, ENT: Negative for injury, pain, and discharge, Neck: Negative for injury, pain, and swelling, Cardiovascular: Negative for chest pain, palpitations, and edema, Respiratory: Negative for shortness of breath, cough, wheezing, and pleuritic chest pain. 09:19 Back: Negative for injury and pain, : Negative for injury, bleeding, discharge, and swelling, MS/Extremity: Negative for injury and deformity, Skin: Negative for injury, rash, and discoloration, Neuro: Negative for headache, weakness, numbness, tingling, and seizure, Psych: Negative for depression, anxiety, suicide ideation, homicidal ideation, and hallucinations. 09:19 Abdomen/GI: Positive for abdominal pain, nausea. Exam: 09:16 Head/Face: Normocephalic, atraumatic. Eyes: Pupils equal round and reactive to light, snw extra-ocular motions intact. Lids and lashes normal. Conjunctiva and sclera are non-icteric and not injected. Cornea within normal limits. Periorbital areas with no swelling, redness, or edema. ENT: Nares patent. No nasal discharge, no septal abnormalities noted. Tympanic membranes are normal and external auditory canals are clear. Oropharynx with no redness, swelling, or masses, exudates, or evidence of obstruction, uvula midline. Mucous membranes moist. Neck: Trachea midline, no thyromegaly or masses palpated, and no cervical lymphadenopathy. Supple, full range of motion without nuchal rigidity, or vertebral point tenderness. No Meningismus. Chest/axilla: Normal chest wall appearance and motion. Nontender with no deformity. No lesions are appreciated. Cardiovascular: Regular rate and rhythm with a normal S1 and S2. No gallops, murmurs, or rubs. Normal PMI, no JVD. No pulse deficits. Respiratory: Lungs have equal breath sounds bilaterally, clear to auscultation and percussion. No rales, rhonchi or wheezes noted. No increased work of breathing, no retractions or nasal flaring. 09:16 Back: No spinal tenderness. No costovertebral tenderness. Full range of motion. Skin: Warm, dry with normal turgor. Normal color with no rashes, no lesions, and no evidence of cellulitis. MS/ Extremity: Pulses equal, no cyanosis. Neurovascular intact. Full, normal range of motion. Neuro: Awake and alert, GCS 15, oriented to person, place, time, and situation. Cranial nerves II-XII grossly intact. Motor strength 5/5 in all extremities. Sensory grossly intact. Cerebellar exam normal. Normal gait. Psych: Awake, alert, with orientation to person, place and time. Behavior, mood, and affect are within normal limits. 09:16 Constitutional: The patient appears alert, awake, anxious, uncomfortable. 09:16 Abdomen/GI: Inspection: abdomen appears normal, Bowel sounds: normal, Palpation: moderate abdominal tenderness, in the right upper quadrant and left upper quadrant. Vital Signs: 09:01 BP 126 / 94; Pulse 80; Resp 16; Temp 98.1; Pulse Ox 100% on R/A; Weight 111.13 kg; iw Height 5 ft. 6 in. ; Pain 10/10; 10:10 BP 117 / 80; Pulse 62; Resp 18; Pulse Ox 100% on R/A; Pain 6/10; nj1 13:10 BP 106 / 76; Pulse 50; Resp 18; Pulse Ox 100% ; Pain 6/10; nj1 14:23 BP 113 / 66; Pulse 58; Resp 18; Pulse Ox 100% ; nj1 09:01 Body Mass Index 39.54 (111.13 kg, 167.64 cm) iw 09:01 Pain Scale: Adult iw 10:10 Pain Scale: Adult nj1 13:10 Pain Scale: Adult nj1 MDM: 09:03 Patient medically screened. snw 09:20 Differential diagnosis: bowel obstruction, coronary artery disease, cholecystitis, snw Cholelithiasis, gastritis. Data reviewed: vital signs, nurses notes. I considered the following discharge prescriptions or medication management in the emergency department Medications were administered in the Emergency Department. See APR. 10:43 Management of patient was discussed with the following: Payroll Administrator: Dr. Grove, NPO, snw Dia, MRCP, Dr. Naqvi, agrees with plan. Care significantly affected by the following chronic conditions: on Wegovy . Counseling: I had a detailed discussion with the patient and/or guardian regarding the historical points, exam findings, and any diagnostic results supporting the discharge/admit diagnosis, lab results, radiology results, the need for further work-up and treatment in the hospital. 10/11 09:04 Order name: CBC with Diff; Complete Time: 10:54 snw 10/11 09:04 Order name: CMP; Complete Time: 10:15 snw 10/11 09:04 Order name: Lipase; Complete Time: 10:15 snw 10/11 09:04 Order name: Urinalysis w/ reflexes snw 10/11 09:17 Order name: Troponin High Sensitivity; Complete Time: 10:15 snw 10/11 12:34 Order name: Phosphorus; Complete Time: 12:38 EDMS 10/11 12:34 Order name: Magnesium; Complete Time: 12:38 EDMS 10/11 09:04 Order name: Abdomen Limited US; Complete Time: 09:55 snw 10/11 09:04 Order name: IV Saline Lock; Complete Time: 09:28 snw 10/11 09:04 Order name: Labs collected and sent; Complete Time: 09:28 snw 10/11 09:45 Order name: Labs - recollect needed: recollect lavender top; Complete Time: 10:59 bd 10/11 10:43 Order name: NPO; Complete Time: 10:59 snw Administered Medications: 09:22 Drug: NS 0.9% IV 1000 ml Route: IV; Rate: 1 bolus; Site: right antecubital; nj1 10:30 Follow up: Response: No adverse reaction; IV Status: Completed infusion; IV Intake: nj1 1000ml 09:22 Drug: Famotidine IVP 20 mg Route: IVP; Site: right antecubital; nj1 10:15 Follow up: Response: No adverse reaction nj1 09:24 Drug: morphine IVP or IV 4 mg Route: IVP; Infused Over: 4 mins; Site: right antecubital;nj1 10:10 Follow up: Response: No adverse reaction; Pain is decreased nj1 11:20 Drug: Piperacillin-Tazobactam IVPB 3.375 grams Route: IVPB; Infused Over: 60 mins; nj1 Site: right antecubital; 12:20 Follow up: Response: No adverse reaction; IV Status: Completed infusion; IV Intake: nj1 100ml Disposition: 16:24 Co-signature as Attending Physician, Guy Love MD I reviewed the patient's care rt provided by the Advanced Practice Provider and agree with the diagnosis and treatment plan. Disposition Summary: 10/11/22 10:47 Hospitalization Ordered Hospitalization Status: Inpatient Admission snw Provider: Eyad Cuellar Location: Telemetry/MedSur (Inpatient) snw Condition: Stable snw Problem: an acute exacerbation snw Symptoms: are unchanged snw Bed/Room Type: Standard snw Room Assignment: 214(10/11/22 13:29) bd Diagnosis - Other cholelithiasis with obstruction snw - Disorders of gallbladder, biliary tract and pancreas in diseases classified snw elsewhere - Elevated liver enzymes snw Forms: - Medication Reconciliation Form snw - SBAR form snw - Leadership Thank You Letter snw Signatures: Dispatcher [employer] Barbra Cárdenas Shelly, FNP-C EMBALMER/FUNERAL DIRECTOR-Csnw Lalitha Zamudio RN RN iw Guy Love MD MD rt Adrienne Zhu RN RN nj1 Corrections: (The following items were deleted from the chart) 13:29 10:47 snw bd
--- NOTE | 2022-10-11 10:48 | ER ---
Nurse's Notes [facility] Name: Timmy Clark Age: 32 yrs Sex: Male : 1990 Arrival Date: 10/11/2022 Time: 08:31 Bed 18 Private MD: Diagnosis: Other cholelithiasis with obstruction;Disorders of gallbladder, biliary tract and pancreas in diseases classified elsewhere;Elevated liver enzymes Presentation: 10/11 09:01 Chief complaint: Patient states: pain all over abdomen , was recently admitted and told iw he passed a gall stone , having similar pain , no vomiting , pain worse this morning. Coronavirus screen: At this time, the client does not indicate any symptoms associated with coronavirus-19. Ebola Screen: Patient negative for fever greater than or equal to 101.5 degrees Fahrenheit, and additional compatible Ebola Virus Disease symptoms Patient denies exposure to infectious person. Patient denies travel to an Ebola-affected area in the 21 days before illness onset. No symptoms or risks identified at this time. Initial Sepsis Screen: Does the patient meet any 2 criteria? No. Patient's initial sepsis screen is negative. Does the patient have a suspected source of infection? No. Patient's initial sepsis screen is negative. Risk Assessment: Do you want to hurt yourself or someone else? Patient reports no desire to harm self or others. Onset of symptoms was October 11, 2022. 09:01 Method Of Arrival: Ambulatory iw 09:01 Acuity: RM 3 iw Historical: - Allergies: 09:02 NKA; iw - PMHx: 09:02 Hypertension; iw - Immunization history:: Adult Immunizations unknown. - Social history:: Smoking status: unknown. Screenin:28 [facility] ED Fall Risk Assessment (Adult) Score/Fall Risk Level 0 - 2 = Low Risk nj1 Oriented to surroundings, Maintained a safe environment, Hourly rounding (assess needs \T\ fall precautionary measures) done. Abuse screen: Denies threats or abuse. Denies injuries from another. Nutritional screening: No deficits noted. Tuberculosis screening: No symptoms or risk factors identified. Assessment: 09:15 General: Appears in no apparent distress. uncomfortable, Behavior is calm, cooperative, nj1 appropriate for age. Pain: Complains of pain in abdomen Pain currently is 10 out of 10 on a pain scale. 09:15 Neuro: Level of Consciousness is awake, alert, obeys commands, Oriented to person, nj1 place, time, situation. Cardiovascular: Patient's skin is warm and dry. Respiratory: Airway is patent Respiratory effort is even, unlabored. GI: Reports upper abdominal pain. 10:10 Reassessment: Patient appears in no apparent distress at this time. Patient and/or nj1 family updated on plan of care and expected duration. Pain level reassessed. Patient is alert, oriented x 3, equal unlabored respirations, skin warm/dry/pink. 10:10 Pain: Complains of pain in abdomen Pain currently is 6 out of 10 on a pain scale. nj1 10:14 Reassessment: Inside slab miller operator to come recollect lavender top. nj1 13:10 Reassessment: Patient appears in no apparent distress at this time. Patient and/or nj1 family updated on plan of care and expected duration. Pain level reassessed. Patient is alert, oriented x 3, equal unlabored respirations, skin warm/dry/pink. 14:24 Reassessment: Patient appears in no apparent distress at this time. Patient and/or nj1 family updated on plan of care and expected duration. Pain level reassessed. Patient is alert, oriented x 3, equal unlabored respirations, skin warm/dry/pink. Vital Signs: 09:01 BP 126 / 94; Pulse 80; Resp 16; Temp 98.1; Pulse Ox 100% on R/A; Weight 111.13 kg; iw Height 5 ft. 6 in. ; Pain 10/10; 10:10 BP 117 / 80; Pulse 62; Resp 18; Pulse Ox 100% on R/A; Pain 6/10; nj1 13:10 BP 106 / 76; Pulse 50; Resp 18; Pulse Ox 100% ; Pain 6/10; nj1 14:23 BP 113 / 66; Pulse 58; Resp 18; Pulse Ox 100% ; nj1 09:01 Body Mass Index 39.54 (111.13 kg, 167.64 cm) iw 09:01 Pain Scale: Adult iw 10:10 Pain Scale: Adult nj1 13:10 Pain Scale: Adult nj1 ED Course: 08:46 Patient arrived in ED. im 09:02 Triage completed. iw 09:03 Jessa Veliz FNP-C is PHCP. snw 09:03 Guy Love MD is Attending Physician. snw 09:03 Arm band placed on. iw 09:06 Adrienne Zhu, RN is Primary Nurse. nj1 09:22 Inserted saline lock: 22 gauge in right antecubital area, using aseptic technique. nj1 Blood collected. 09:29 Patient has correct armband on for positive identification. Bed in low position. Call nj1 light in reach. Adult w/ patient. Provided Education on: fall precautions, call light. 09:37 Abdomen Limited US In Process Unspecified. EDMS 10:46 Eyad Cuellar is Hospitalizing Provider. snw 15:31 No provider procedures requiring assistance completed. Patient admitted, IV remains in iw place. Administered Medications: 09:22 Drug: NS 0.9% IV 1000 ml Route: IV; Rate: 1 bolus; Site: right antecubital; nj1 10:30 Follow up: Response: No adverse reaction; IV Status: Completed infusion; IV Intake: nj1 1000ml 09:22 Drug: Famotidine IVP 20 mg Route: IVP; Site: right antecubital; nj1 10:15 Follow up: Response: No adverse reaction nj1 09:24 Drug: morphine IVP or IV 4 mg Route: IVP; Infused Over: 4 mins; Site: right antecubital;nj1 10:10 Follow up: Response: No adverse reaction; Pain is decreased nj1 11:20 Drug: Piperacillin-Tazobactam IVPB 3.375 grams Route: IVPB; Infused Over: 60 mins; nj1 Site: right antecubital; 12:20 Follow up: Response: No adverse reaction; IV Status: Completed infusion; IV Intake: nj1 100ml Medication: 15:31 VIS not applicable for this client. iw Intake: 10:30 IV: 1000ml; Total: 1000ml. nj1 12:20 IV: 100ml; Total: 1100ml. nj1 Outcome: 10:47 Decision to Hospitalize by Provider. snw 15:30 Admitted to Med/surg accompanied by nurse, via wheelchair, room 214, Report called to Brigitte 15:30 Condition: good 15:30 Discharge instructions given to patient, Instructed on the need for admit. 15:31 Patient left the ED. iw Signatures: Dispatcher [employer] EDJessa Vázquez, ON AIR PERSONALITY-C ON AIR PERSONALITY-Csnw Lalitha Zamudio, RN RN iw Adrienne Zhu, RN RN nj1 Sandoval, Lorna im
[2022-10-11] MEDS ORDERED: NA CHLORIDE 0.9% 100 ML ONE (11:16)
[2022-10-11] MEDS ORDERED: PIPERACIL/TAZO 3.375 GM VIAL IV ONE (11:16)
[2022-10-11] MEDS ORDERED: ACETAMINOPHEN 650MG/RECT SUPP PR PRN (11:54)
[2022-10-11 12:34] LABS: Magnesium 2.1 mg/dL (1.6-2.4); Phosphorus 3.3 mg/dL (2.5-4.9)
[2022-10-11] MEDS ORDERED: NA CHLORIDE 0.9% 1,000 ML IV SCH (13:00)
[2022-10-11 15:53] VITALS: BMI 40.0
--- NOTE | 2022-10-11 19:10 | P.HP ---
Certification for Inpatient Patient admitted to: Observation With expected LOS: <2 Midnights Patient will require the following post-hospital care: None Practitioner: I am a practitioner with admitting privileges, knowledge of patient current condition, hospital course, and medical plan of care. Services: Services provided to patient in accordance with Admission requirements found in Title 42 Section 412.3 of the Code of Federal Regulations Patient History Date of Service: 10/11/22 Reason for admission: Abdominal pain History of Present Illness: Patient is a 32-year-old male with a past medical history significant for hypertension who presents with complaint of abdominal pain onset yesterday. Patient reported that abdominal pain started around the periumbilical area then became generalized over time. Patient rated pain as 10/10 in severity and described pain as cramping\aching in quality. Patient reported associated signs and symptoms of nausea. Patient denies any other signs and symptoms. Symptoms are aggravated or relieved by nothing. Patient decided to present to the hospital due to worsening symptoms. 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 - Family History Mother -: Heart disease, Lung disease, Other (see notes) Notes: Asthma Father -: Heart disease - Social History Smoking Status: Never smoker Alcohol use: Yes CD- Drugs: No Caffeine use: Yes Place of Residence: Home Review of Systems General: Unremarkable Eyes: Unremarkable ENT: Unremarkable Respiratory: Unremarkable Cardiovascular: Unremarkable Gastrointestinal: Nausea, Abdominal Pain Genitourinary: Unremarkable Musculoskeletal: Unremarkable Integumentary: Unremarkable Neurological: Unremarkable Lymphatics: Unremarkable Physical Examination - Vital Signs Temperature: 97.8 F Blood Pressure: 122/75 Pulse: 68 Respirations: 16 Pulse Ox (%): 98 - Physical Exam General: Alert, In no apparent distress, Oriented x3, Cooperative HEENT: Atraumatic, PERRLA, Mucous membr. moist/pink, EOMI, Sclerae nonicteric Neck: Supple, 2+ carotid pulse no bruit, No LAD, Without JVD or thyroid abnormality Respiratory: Clear to auscultation bilaterally, Normal air movement Cardiovascular: No edema, Regular rate/rhythm, Normal S1 S2 Capillary refill: <2 Seconds Gastrointestinal: Normal bowel sounds, Non-distended, Tenderness Musculoskeletal: No clubbing, No contractures, No tenderness Integumentary: No rashes Neurological: Normal speech, Normal tone, Normal affect Lymphatics: No axilla or inguinal lymphadenopathy - Studies Laboratory Data (last 24 hrs) 10/11/22 10/11/22 10/11/22 10:36 09:20 09:20 WBC 5.60 Hgb 14.0 Hct 41.0 Plt Count 229 Sodium 136 Potassium 4.2 BUN 23 H Creatinine 1.06 Glucose 95 Phosphorus 3.3 Magnesium 2.1 Total Bilirubin 1.3 H AST 1134 H ALT 1175 H Alkaline Phosphatase 165 H Lipase 93 H Assessment and Plan - Plan --Symptomatic cholelithiasis. Abdominal ultrasound indicates Cholelithiasis without evidence of cholecystitis Borderline dilatation of common bile duct. Surgeon consulted. Plans a laparoscopic cholecystectomy in a.m. Continue IV hydration. --Transaminitis. Likely secondary to bodeline choledocholithiasis. Gastroenterology consulted. We will continue to monitor LFTs and await further recommendation from water meter reader. --Hypertension. Stable. We will manage BP with hydralazine as needed. --Nausea. Antiemetics on board. Continue IV hydration. --Acute pain. We will manage pain with current pain medication regimen. --Class III obesity. Likely secondary to excess calories intake. Patient counseled on weight reduction, diet and excise therapy. --PTSD. Continue home medication when available. --Sleep apnea. Continue supportive care. --DVT prophylaxis with SCDs. Discharge Plan: Home Plan to discharge in: 48 Hours - Advance Directives Does patient have a Living Will: No Does patient have a Durable POA for Healthcare: No - Code Status/Comfort Care Code Status Assessed: Yes Physician Review: Patient Assessed, Agree with Above Assessment and Plan Critical Care: No
[2022-10-11] MEDS ORDERED: HYDRALAZINE HCL 20 MG/ML VIAL IV PRN (19:15)
[2022-10-11] MEDS: ONDANSETRON 4 MG/2 ML VIAL IV PRN (19:22)
[2022-10-11] MEDS: MORPHINE 4 MG/ML SYR IV PRN (19:22)
[2022-10-11] MEDS: NA CHLORIDE 0.9% 1,000 ML IV SCH (20:09)
[2022-10-11] MEDS: INSULIN -REGULAR HUMAN 50 UNIT/0.5 ML ML SQ SCH (20:48)
[2022-10-12] MEDS: PIPER TAZO 3.375 GM in NA CHLORIDE 0.9% 100 ML IV SCH ×3 (00:26→17:40)
[2022-10-12] MEDS: NA CHLORIDE 0.9% 1,000 ML IV SCH ×3 (03:00→19:00)
[2022-10-12 04:28] LABS: Absolute Lymphocytes (CBC) 1.5 K/uL (0.7-4.9); Hematocrit 39.4 % (39.6-49.0); Lymphocytes % 19.1 % (15.3-44.8); MCV 93.6 fL (80-100); MPV 8.5 fL (7.6-11.3); Platelets 220 thou/uL (152-406); RBC Red Blood Cell Count 4.21 M/uL (4.33-5.43)
[2022-10-12 04:29] LABS: Protime INR 1.17
[2022-10-12 05:03] LABS: Bilirubin Total 1.3 mg/dL (0.2-1.0); Magnesium 1.8 mg/dL (1.6-2.4); Phosphorus 3.9 mg/dL (2.5-4.9); Potassium 3.8 mEq/L (3.5-5.1); Protein, Total 6.3 g/dL (6.4-8.2)
[2022-10-12] MEDS ORDERED: MAGNESIUM SULFATE 1 gm IVPB 1 GM/100 ML BAG IV ONE (07:00)
[2022-10-12] MEDS: INSULIN -REGULAR HUMAN 50 UNIT/0.5 ML ML SQ SCH ×4 (07:30→20:57)
[2022-10-12] MEDS: KCL 20 MEQ/100 mL IVPB 20 MEQ/100 ML BAG IV SCH ×2 (08:00→11:29)
[2022-10-12] MEDS ORDERED: LORazepam 2 MG/ML VIAL IV ONE (08:37)
--- NOTE | 2022-10-12 11:54 | RAD REPORT ---
EXAM DESCRIPTION: MRICholangiogram10/12/2022 11:38 am CLINICAL HISTORY: Abdominal pain COMPARISON: September 2022 MRCP October 2022 ultrasound TECHNIQUE: Magnetic resonance cholangiogram was performed.3D MIP reconstruction performed. Additiona l axial and coronal magnetic resonance imaging of abdomen obtained. FINDINGS: The gallbladder wall appears thickened Filling defects within the gallbladder compatible with gallstones. The biliary tree is normal caliber without a filling defect. Pancreatic duct is normal caliber IMPRESSION: Cholelithiasis Thickened gallbladder wall may indicate cholecystitis and should correlated clinically Unremarkable evaluation of biliary tree
--- NOTE | 2022-10-12 15:59 | P.PN ---
Subjective Date of Service: 10/12/22 Chief Complaint: Abdominal pain Patient is complaining of right upper quadrant pain. No recorded fever. No nausea or vomiting. Physical Examination - Vital Signs Temperature: 98.6 F Blood Pressure: 137/75 Pulse: 77 Respirations: 18 Pulse Ox (%): 97 Assessment And Plan - Plan Physical Exam General: Alert, In no apparent distress, Oriented x3, Cooperative HEENT: Sclerae nonicteric Neck: Supple, no elevated JVD. Respiratory: Clear to auscultation bilaterally, Normal air movement Cardiovascular: No edema, Regular rate/rhythm, Normal S1 S2 Gastrointestinal: Normal bowel sounds, Non-distended, right upper quadrant tenderness Musculoskeletal: No tenderness Integumentary: No rashes Neurological: Normal speech, Normal tone, Normal affect Diagnosis Acute cholecystitis Transaminitis Obesity Plan: Acute cholecystitis/cholelithiasis/transaminitis MRCP done shows unremarkable biliary tree and suggest cholecystitis. Patient seen by general surgery Dr. Grove who is planning lap cholecystectomy. Elevated liver enzymes likely related to the cholelithiasis. No CBD stone. Supportive measures with pain management as needed. Monitor LFT Class III obesity. Weight loss by diet and exercise advised. DVT prophylaxis with SCDs.
[2022-10-12] MEDS ORDERED: KCL 20 MEQ/100 mL IVPB 20 MEQ/100 ML BAG IV SCH (21:00)
[2022-10-13] MEDS: PIPER TAZO 3.375 GM in NA CHLORIDE 0.9% 100 ML IV SCH ×4 (00:15→23:51)
[2022-10-13] MEDS: NA CHLORIDE 0.9% 1,000 ML IV SCH ×4 (00:15→14:39)
[2022-10-13 04:03] LABS: Absolute Lymphocytes (CBC) 1.6 K/uL (0.7-4.9); Hematocrit 39.3 % (39.6-49.0); Lymphocytes % 21.6 % (15.3-44.8); MCV 92.5 fL (80-100); MPV 7.9 fL (7.6-11.3); Platelets 242 thou/uL (152-406); RBC Red Blood Cell Count 4.25 M/uL (4.33-5.43)
[2022-10-13 04:20] LABS: Albumin 3.2 g/dL (3.4-5.0); Bilirubin Total 1.1 mg/dL (0.2-1.0); Magnesium 1.9 mg/dL (1.6-2.4); Phosphorus 3.9 mg/dL (2.5-4.9); Potassium 3.9 mEq/L (3.5-5.1); Protein, Total 6.7 g/dL (6.4-8.2)
[2022-10-13] MEDS: INSULIN -REGULAR HUMAN 50 UNIT/0.5 ML ML SQ SCH ×4 (07:30→21:00)
[2022-10-13] MEDS ORDERED: BUPIVACAINE 0.25% PF 30 ML VIAL ONE (08:58)
[2022-10-13] MEDS ORDERED: LIDOCAINE 2% MPF 5 ML VIAL ONE (09:09)
[2022-10-13] MEDS ORDERED: MIDAZOLAM HCL 2 MG/2 ML INJ ONE (09:09)
[2022-10-13] MEDS ORDERED: dexAMETHasone 10 MG/ML VIAL ONE (09:09)
[2022-10-13] MEDS ORDERED: propofoL 200 MG/20 ML VIAL IV ONE (09:09)
[2022-10-13] MEDS ORDERED: ROCURONIUM 50 MG/5 ML VIAL IV ONE (09:09)
[2022-10-13] MEDS ORDERED: KETOROLAC 30 MG/ML INJ ONE (09:09)
[2022-10-13] MEDS ORDERED: FENTANYL CITR 100 MCG/2 ML ONE ×2 (09:09→10:09)
[2022-10-13] MEDS ORDERED: KETAMINE HCL IN 0.9 % NACL 50 MG/5 ML SYRINGE IV ONE (09:09)
[2022-10-13] MEDS ORDERED: ONDANSETRON 4 MG/2 ML VIAL ONE (09:11)
[2022-10-13] MEDS ORDERED: GLYCOPYRROLATE 0.2 MG/ML SYR ONE ×2 (09:12→11:49)
--- NOTE | 2022-10-13 11:43 | RAD REPORT ---
EXAM DESCRIPTION: RAD - Cholangiogram Oper-Xray Or - 10/13/2022 11:34 am CLINICAL HISTORY: LAP MOMO W/IOC COMPARISON: Cholangiogram dated 10/12/2022 FINDINGS: Cystic duct cannulation injection performed by operating surgeon. Intrahepatic biliary david e is normal caliber. Common bile duct is normal caliber without evidence of retained stone. Total fluoro time: 1.0 minute
--- NOTE | 2022-10-13 11:46 | P.OP ---
Preoperative diagnosis: Cholecystitis possible choledocholithiasis Postoperative diagnosis: Cholecystitis possible choledocholithiasis Primary procedure: Laparoscopic Cholecystectomy with intraoperative cholangiogram Secondary procedure: Laparoscopic common bile duct exploration Other procedure(s): Indocyanin Green Cholangiography Estimated blood loss: <20cc Specimen: Gallbladder Findings: Cholecystitis, slow flow of contrast to duodenum, valves in cystic duct Complications: None Drain(s): MARC drain (10mm) Transferred to: Recovery Room Condition: Good
[2022-10-13] MEDS ORDERED: NEOSTIGMINE 1 MG/ML -10 ML VIAL ONE (11:48)
[2022-10-13] MEDS ORDERED: Ringers Lactate 1,000 ML IV ONE (12:10)
[2022-10-13] MEDS: HYDROMORPHONE HCL 1 MG/ML INJ ONE ×3 (12:25→12:30)
[2022-10-13 12:37] VITALS: O2SAT 95
--- NOTE | 2022-10-13 13:06 | OP ---
Date of Procedure: 10/13/2022 Surgeon: Omero Grove MD, Preoperative Diagnoses: Cholecystitis, possible choledocholithiasis, elevation of liver transaminase s. Postoperative Diagnoses: Cholecystitis, possible choledocholithiasis, elevation of liver transaminas es. Procedures Performed: 1.A laparoscopic cholecystectomy with intraoperative cholangiogram. 2.Laparoscopic common bile duct exploration. 3.Indocyanine green cholangiography. Estimated Blood Loss: Less than 20 cc. Specimen: Gallbladder. Findings: 1.Findings consistent with cholecystitis. 2.Significant inflammatory changes over the anterior surface of the gallbladder with omentum stuck t o the anterior surface of the gallbladder all the way down to the triangle of Calot. 3.Significant thickened bowels at the cystic duct visible on common duct exploration. Complications: None. Drains: A 10 mm flat MARC drain placed in the subhepatic fossa. Disposition: The patient was transferred to the recovery room in good condition. Procedure In Detail: After informed consent was obtained, the patient was brought to the operating r oom, prepped and draped in the usual sterile fashion after adequate anesthesia was achieved. I anest hetized an area in the supraumbilical position down to subcutaneous tissues. A 5 mm 0-degree optical trocar was introduced into the abdomen without evidence of complication. Insufflation was obtained to 15 mmHg at this time. There was no injury to vital structures upon entry into the abdomen. Three additional trocars were placed, 1 in the epigastrium and 2 in the right upper quadrant. All these w ere similarly anesthetized, sharply incised, and a 5 mm trocar was placed under direct visualization without evidence of complication. The umbilical trocar then upsized to a 12 mm under direct visualiz ation without evidence of complication. The patient was positioned head up right-side up position. Ratcheted grasper was used to grasp the patient's gallbladder and placed toward the patient's right s houlder. Omental attachments were taken off the anterior surface of the gallbladder with a combinati on of blunt dissection and electrocautery to expose 2 structures identified as both the cystic duct a nd cystic artery. Critical view of safety was obtained at this point. I then placed a clip on the d istal aspect of the gallbladder, cystic duct confluence. I made a small lesia incision overlying the cystic duct. A ductotomy was made at this point for the purpose of cholangiography. At this point, I placed double titanium clips on the proximal side and singly on the distal side of the cystic arter y. I then placed a Cook cholangiogram 4 mm catheter into the bile duct, inflated the balloon slightl y, and shot a cholangiogram at this point. Contrast did fill the duodenum and no obvious stones were evident; however, upon closer examination near the ampulla, there were some slight filling defects a nd the contrast moved slowly and with some resistance into the duodenum. At this point, I opted to a dvance a wire through the current position and left a 0.35 Glidewire in the duodenum under fluoroscop ic guidance at this point. I then removed the introduction sheath and placed a 4-Emirati dilator mirza th into the cystic ductotomy. At this point, I performed an intraoperative common duct exploration b y placing the Spyglass camera into the distal aspect of the cystic duct; however, the valves were haris te thick and fibrous, and I was unable to traverse these successfully beyond the common duct and cyst ic duct confluence and into the distal aspect of the common bile duct and as such, multiple attempts were made by repositioning, changing the trocar locations and so forth ultimately the wire continued to pass quite easily. At this point, I opted to not continue to possibly injure the ducts and as suc h, I abandoned the common duct exploration at this point. The area was flushed with saline at the en d. I suctioned out the saline to get a good view of the cystic duct stump. I placed an Endoloop of 2-0 Vicryl on the cystic duct stump and an additional single titanium clip was placed distal to this as well. No narrowing of the common duct was appreciated this point. I then irrigated the area copi ously and suctioned out the remaining effluent at this point. I ligated the cystic artery at this po int to allow for removal of the gallbladder from the hepatic fossa, which was done using electrocaute ry without any incident or complication. The gallbladder was then placed in EndoCatch bag, removed t hrough the umbilical trocar, and sent off for pathologic examination. The abdomen was re-insufflated at this point. Irrigation was performed once again and suctioned out until completely dry. At this point, I placed a 10 mm flat MARC drain in the subhepatic space and brought out through the lateral ri ght trocar and secured to the skin using a 2-0 nylon suture. At this point, the area was inspected. The patient was positioned back in neutral position. The remaining effluent was suctioned out. I c losed the umbilical trocar site using a Vannessa suture passer with 0 Vicryl in an interrupted fashion with good approximation of tissues. The abdomen was then completely desufflated under direc t vision without evidence of complication. The remaining trocars were removed. All skin incisions w ere then copiously irrigated and closed with a 4-0 Monocryl in a running fashion. Dermabond placed o batsheva the top. The patient tolerated the procedure well without evidence of complication and transferr ed to PACU in good condition. All counts were correct at the end of the case. JOVON/DINO Voice ID: [id number] Report ID: [id number]
[2022-10-13] MEDS: MORPHINE 4 MG/ML SYR IV PRN ×3 (14:38→21:26)
[2022-10-13] MEDS: ONDANSETRON 4 MG/2 ML VIAL IV PRN (14:39)
--- NOTE | 2022-10-13 18:55 | P.PN ---
Subjective Date of Service: 10/13/22 Chief Complaint: Abdominal pain Status post lap laisha today. No recorded fever. Physical Examination - Vital Signs Temperature: 97.0 F Blood Pressure: 122/68 Pulse: 64 Respirations: 16 Pulse Ox (%): 96 Assessment And Plan - Plan Physical Exam General: Alert, In no apparent distress, Oriented x3, Cooperative HEENT: Sclerae nonicteric Neck: Supple, no elevated JVD. Respiratory: Clear to auscultation bilaterally, Normal air movement Cardiovascular: No edema, Regular rate/rhythm, Normal S1 S2 Gastrointestinal: Normal bowel sounds, Non-distended, right upper quadrant tenderness Musculoskeletal: No tenderness Integumentary: No rashes Neurological: Normal speech, Normal tone, Normal affect Diagnosis Acute cholecystitis Transaminitis Obesity Plan: Acute cholecystitis/cholelithiasis/transaminitis MRCP done shows unremarkable biliary tree and suggested cholecystitis. Patient seen by general surgery Dr. Maine lazcano cholecystectomy performed. Intra-Op cholangiogram and common bile duct exploration unremarkable. Elevated liver enzymes likely related to the cholelithiasis. LFTs trending down. Supportive measures with pain management as needed. Repeat LFT in a.m. Possible discharge in a.m. Class III obesity. Weight loss by diet and exercise advised. DVT prophylaxis with SCDs.
--- NOTE | 2022-10-13 21:28 | P.PN ---
Subjective Date of Service: 10/13/22 Chief Complaint: Periumbilical / gen abdominal pain, Cholecystitis / cholelithiasis Subjective: Improving (S/p lap laisha today.) Physical Examination - Vital Signs Temperature: 97.0 F Blood Pressure: 122/68 Pulse: 64 Respirations: 16 Pulse Ox (%): 96 Assessment And Plan - Plan REC: 1) diet as per surgery 2) GI clinic f/u prn Physician Review: Patient Assessed, Agree with Above Assessment and Plan
[2022-10-13] MEDS ORDERED: ZOLPIDEM TARTRATE 10 MG TABLET PO PRN (23:38)
[2022-10-14] MEDS: NA CHLORIDE 0.9% 1,000 ML IV SCH ×3 (03:00→20:05)
[2022-10-14 04:03] LABS: Absolute Lymphocytes (CBC) 1.5 K/uL (0.7-4.9); Hematocrit 38.5 % (39.6-49.0); Lymphocytes % 15.3 % (15.3-44.8); MCV 93.4 fL (80-100); MPV 8.3 fL (7.6-11.3); Platelets 277 thou/uL (152-406); RBC Red Blood Cell Count 4.12 M/uL (4.33-5.43)
[2022-10-14 04:19] LABS: Albumin 2.9 g/dL (3.4-5.0); Bilirubin Total 0.5 mg/dL (0.2-1.0); Magnesium 2.1 mg/dL (1.6-2.4); Phosphorus 3.6 mg/dL (2.5-4.9); Potassium 4.3 mEq/L (3.5-5.1); Protein, Total 6.5 g/dL (6.4-8.2)
[2022-10-14] MEDS: INSULIN -REGULAR HUMAN 50 UNIT/0.5 ML ML SQ SCH ×4 (07:30→21:00)
[2022-10-14] MEDS: PIPER TAZO 3.375 GM in NA CHLORIDE 0.9% 100 ML IV SCH ×2 (07:49→16:10)
[2022-10-14] MEDS: HYDROCODONE/APAP 5/325 MG TAB PO PRN ×3 (07:51→22:45)
[2022-10-14] MEDS: MORPHINE 4 MG/ML SYR IV PRN ×2 (09:47→13:42)
--- NOTE | 2022-10-14 14:08 | P.PN ---
Subjective Date of Service: 10/14/22 Chief Complaint: Periumbilical / gen abdominal pain, Cholecystitis / cholelithiasis Status post lap laisha 10/13 Patient states he feels much better. He stated he ate solid diet without pain. No recorded fever. Physical Examination - Vital Signs Temperature: 97.5 F Blood Pressure: 134/86 Pulse: 61 Respirations: 15 Pulse Ox (%): 96 Assessment And Plan - Plan Physical Exam General: Alert, In no apparent distress, Oriented x3, Cooperative HEENT: Sclerae nonicteric Respiratory: Clear to auscultation bilaterally, Normal air movement Cardiovascular: No edema, Regular rate/rhythm, Normal S1 S2 Gastrointestinal: Normal bowel sounds, Non-distended, trocar wounds looks clean. Musculoskeletal: No tenderness Diagnosis Acute cholecystitis Transaminitis Obesity Plan: Acute cholecystitis/cholelithiasis/transaminitis MRCP done shows unremarkable biliary tree and suggested cholecystitis. Patient seen by general surgery Dr. Maine lazcano cholecystectomy performed. Intra-Op cholangiogram and common bile duct exploration unremarkable. Elevated liver enzymes likely related to the cholelithiasis. LFTs continue to trend down but still significantly elevated. Supportive measures with pain management as needed. Continue to monitor LFTs. He is tolerating solid diet. GI input appreciated. Class III obesity. Weight loss by diet and exercise advised. DVT prophylaxis: Lovenox
[2022-10-14] MEDS ORDERED: ENOXAPARIN 40 MG/0.4 ML SQ SCH (17:00)
--- NOTE | 2022-10-14 18:53 | P.PN ---
Subjective Date of Service: 10/14/22 Chief Complaint: Periumbilical / gen abdominal pain, Cholecystitis / cholelithiasis Subjective: New changes (Post-op pain. Verbal -> intra-operative IOC / spyglass negative for CBD stones. OP report inflamed gallbladder adherent to abdominal wall, requiring more extensive surgery.) Review of Systems 10-point ROS is otherwise unremarkable Gastrointestinal: Abdominal Pain Physical Examination - Vital Signs Temperature: 97.5 F Blood Pressure: 134/86 Pulse: 61 Respirations: 16 Pulse Ox (%): 99 - Physical Exam General: Alert, Oriented x3, Mild distress (post-op pain) HEENT: Atraumatic, Normocephalic, PERRLA, EOMI Neck: Supple Respiratory: Normal air movement Cardiovascular: Normal pulses Gastrointestinal: No rebound, Tenderness, Guarding Neurological: Normal speech, Normal strength at 5/5 x4 extr Assessment And Plan - Plan REC: 1) diet as per surgery 2) GI clinic f/u prn Physician Review: Patient Assessed, Agree with Above Assessment and Plan
[2022-10-15] MEDS: PIPER TAZO 3.375 GM in NA CHLORIDE 0.9% 100 ML IV SCH ×2 (03:51→09:00)
[2022-10-15] MEDS: NA CHLORIDE 0.9% 1,000 ML IV SCH ×2 (03:53→11:00)
[2022-10-15] MEDS: HYDROCODONE/APAP 5/325 MG TAB PO PRN ×2 (06:05→13:35)
[2022-10-15 06:34] LABS: Absolute Lymphocytes (CBC) 2.6 K/uL (0.7-4.9); Albumin 2.8 g/dL (3.4-5.0); Bilirubin Total 0.4 mg/dL (0.2-1.0); Lymphocytes % 38.7 % (15.3-44.8); MPV 8.2 fL (7.6-11.3); Magnesium 1.7 mg/dL (1.6-2.4); Phosphorus 3.9 mg/dL (2.5-4.9); Platelets 230 thou/uL (152-406); Potassium 4.1 mEq/L (3.5-5.1); Protein, Total 6.1 g/dL (6.4-8.2); RBC Red Blood Cell Count 3.94 M/uL (4.33-5.43)
[2022-10-15] MEDS: INSULIN -REGULAR HUMAN 50 UNIT/0.5 ML ML SQ SCH ×2 (07:30→11:30)
--- NOTE | 2022-10-15 11:26 | P.DS ---
Admission Date: 10/11/22 Discharge Date: 10/15/22 Disposition: ROUTINE DISCHARGE Discharge Condition: FAIR Reason for Admission: Periumbilical / gen abdominal pain, Cholecystitis / cholelithiasis Brief History of Present Illness: Patient is a 32-year-old male with a past medical history significant for hypertension who presents with complaint of abdominal pain. Patient reported that abdominal pain started around the periumbilical area then became generalized over time. Patient rated pain as 10/10 in severity and described pain as cramping\aching in quality. Patient reported associated signs and symptoms of nausea. Abdominal ultrasound in the ED showed cholelithiasis and borderline dilated CBD. Patient was hospitalized for further management. Hospital Course: Diagnosis Acute cholecystitis Transaminitis Obesity Patient admitted to the medical floor and the following medical problems addressed: Plan: Acute cholecystitis/cholelithiasis/transaminitis MRCP done showed unremarkable biliary tree and suggested cholecystitis. Patient seen by general surgery Dr. Grove lap cholecystectomy performed. Intra-Op cholangiogram and common bile duct exploration unremarkable. Patient had elevated liver enzymes likely related to the cholelithiasis. LFTs trended down after the surgery. Patient tolerated diet, and has been asymptomatic He was seen by GI Dr. Naqvi. Class III obesity. Weight loss by diet and exercise advised. Vital Signs/Physical Exam: Temp Pulse Resp BP Pulse Ox 97.3 F 60 16 123/64 99 10/15/22 08:00 10/15/22 08:00 10/15/22 08:00 10/15/22 08:00 10/15/22 08:00 General: Alert, In no apparent distress, Oriented x3 HEENT: Mucous membr. moist/pink Neck: JVD not distended Respiratory: Clear to auscultation bilaterally, Normal air movement Cardiovascular: No edema, Regular rate/rhythm, Normal S1 S2 Gastrointestinal: Soft and benign, Non-distended Musculoskeletal: No swelling Integumentary: No rashes, No cyanosis Neurological: Normal strength at 5/5 x4 extr Laboratory Data at Discharge: WBC 6.70 thou/uL (4.3-10.9) 10/15/22 06:02 Hgb 12.8 g/dL (13.6-17.9) L 10/15/22 06:02 Hct 37.0 % (39.6-49.0) L 10/15/22 06:02 Plt Count 230 thou/uL (152-406) 10/15/22 06:02 PT 12.9 SECONDS (9.5-12.5) H 10/12/22 04:09 INR 1.17 10/12/22 04:09 Sodium 141 mEq/L (136-145) 10/15/22 06:02 Potassium 4.1 mEq/L (3.5-5.1) 10/15/22 06:02 BUN 13 mg/dL (7-18) 10/15/22 06:02 Creatinine 0.86 mg/dL (0.70-1.30) 10/15/22 06:02 Glucose 95 mg/dL (74-106) 10/15/22 06:02 Phosphorus 3.9 mg/dL (2.5-4.9) 10/15/22 06:02 Magnesium 1.7 mg/dL (1.6-2.4) 10/15/22 06:02 Total Bilirubin 0.4 mg/dL (0.2-1.0) 10/15/22 06:02 AST 27 U/L (15-37) 10/15/22 06:02 ALT 328 U/L (16-61) H 10/15/22 06:02 Alkaline Phosphatase 104 U/L (45-117) D 10/15/22 06:02 Triglycerides 84 mg/dL (<150) 10/12/22 04:09 Cholesterol 148 mg/dL (<200) 10/12/22 04:09 HDL Cholesterol 37 mg/dL (40-60) L 10/12/22 04:09 Cholesterol/HDL Ratio 4.00 10/12/22 04:09 Lipase 33 U/L (13-75) 10/14/22 03:36 Home Medications: Amox/Clavulanate [Augmentin 875-125 Tab] 875 mg PO BID #14 tab 10/15/22 Hydrocodone 7.5/APAP 325 [[place] 7.5/325 mg] 1 tab PO Q6H PRN #15 tab 10/15/22 New Medications: Amox/Clavulanate [Augmentin 875-125 Tab] 875 mg PO BID #14 tab Hydrocodone 7.5/APAP 325 [[place] 7.5/325 mg] 1 tab PO Q6H PRN #15 tab PRN Reason: Pain Diet: AHA Activity: Ad melva Followup: Omero Grove MD [ACTIVE - CAN ADMIT] - (1 week) Chavez Kilgore DO [Primary Care Provider] - Time spent managing pt's care (in minutes): 35
[2022-10-15 13:55] VITALS: BP 108/58; TEMP 98.1
== END 2022-10-15 14:55 | disposition home or self-care (01) | DRG 418 ==
LOC: ER 08:31 → ERHOLD 11:52 → 2ND 15:15
PROVIDERS: ADMIT Internal Medicine; ATTEND Internal Medicine
PROC: BF121ZZ Fluoroscopy of Gallbladder using Low Osmolar Contrast (ICD-10-PCS; 2022-10-13)
PROC: BF101ZZ Fluoroscopy of Bile Ducts using Low Osmolar Contrast (ICD-10-PCS; 2022-10-13)
PROC: BF52200 Other Imaging of Gallbladder using Fluorescing Agent, Indocyanine Green Dye, Intraoperative (ICD-10-PCS; 2022-10-13)
PROC: 0FT44ZZ Resection of Gallbladder, Percutaneous Endoscopic Approach (ICD-10-PCS; principal; 2022-10-13 09:15)
DX: K80.01 Calculus of gallbladder with acute cholecystitis with obstruction (principal); Z68.41 Body mass index [BMI] 40.0-44.9, adult; E66.01 Morbid (severe) obesity due to excess calories; E78.5 Hyperlipidemia, unspecified; I10 Essential (primary) hypertension; G47.30 Sleep apnea, unspecified; G89.29 Other chronic pain; M54.9 Dorsalgia, unspecified; F43.10 Post-traumatic stress disorder, unspecified; R74.01 Elevation of levels of liver transaminase levels; Z71.3 Dietary counseling and surveillance
CPT/HCPCS: 36415; 74181; 74300; 76705; 80053; 80061; 82947; 83036; 83690; 83735; 84100; 84484; 85025; 85610; 88304; 94010; 96361; 96365; 96375; 99285; J1100; J1170; J1650; J2001; J2250; J2405; J2543; J2704; J2710; J3010; J3475; J3480; J7030; J7120